=== PATIENT | female | born 1935 ===

== ENCOUNTER 2022-10-29 18:47 | Emergency (ER) | payer MEDICAID ==
[~2022-10-29] VITALS: Ht 142.2 cm; Wt 63.6 kg
[2022-10-29 19:36] LABS: BASOPHILS % (AUTO) 0.7 % (0-1); EOSINOPHILS # (AUTO) 0.4 X10'3 (0-0.9); EOSINOPHILS % (AUTO) 5.5 % (0-6); HEMATOCRIT 37.3 % (35.0-45.0); HEMOGLOBIN 12.6 g/dl (12.0-16.0); LYMPHOCYTES # (AUTO) 0.7 X10'3 (1.1-4.8); LYMPHOCYTES % (AUTO) 9.8 % (21-51); MEAN CORPUSCULAR HEMOGLOBIN 29.2 PG (27.0-31.0); MEAN CORPUSCULAR HGB CONC 33.6 g/dL (33.0-36.5); MEAN CORPUSCULAR VOLUME 86.7 FL (78-98); MEAN PLATELET VOLUME 8.5 FL (7.4-10.4); MONOCYTES # (AUTO) 0.7 X10'3 (0-0.9); MONOCYTES % (AUTO) 10.8 % (2-12); NEUTROPHILS # (AUTO) 4.9 X10'3 (1.8-7.7); NEUTROPHILS % (AUTO) 73.2 % (42-75); PLATELET COUNT 137 X10'3 (140-440); RED BLOOD COUNT 4.31 X10'6 (4.20-5.60); RED CELL DISTRIBUTION WIDTH 15.3 % (11.5-14.5); WHITE BLOOD COUNT 6.7 X10'3 (4.5-11.0)
[2022-10-29 19:49] LABS: ANION GAP 2 (8-16); CHLORIDE 108 MMOL/L (99-107); GLUCOSE 144 MG/DL (70-104); POTASSIUM 3.8 MMOL/L (3.5-5.1); SODIUM 139 MMOL/L (135-145); TOTAL CARBON DIOXIDE 29.3 MMOL/L (24-32)
[2022-10-29 19:50] LABS: ALANINE AMINOTRANSFERASE 147 U/L (12-78); ALBUMIN 3.3 G/DL (3.4-5.0); ALBUMIN/GLOBULIN RATIO 0.8 (1.1-1.5); ALKALINE PHOSPHATASE 446 IU/L (46-116); AMYLASE 35 U/L (25-115); ASPARTATE AMINO TRANSFERASE 216 U/L (10-37); BLOOD UREA NITROGEN 11 MG/DL (7-18); BUN/CREATININE RATIO 12.6 (10.0-20.0); CALCIUM 8.7 MG/DL (8.5-10.1); CREATININE 0.87 MG/DL (0.40-0.90); LIPASE < 50 U/L (73-393); TOTAL PROTEIN 7.3 G/DL (6.4-8.2); eGFR 61 ML/MIN
[2022-10-29 22:25] VITALS: BP 177/84
== END 2022-10-30 00:54 | disposition left against medical advice (07) ==
LOC: ER 18:48
DX: R10.9 Unspecified abdominal pain (principal); Z53.21 Procedure and treatment not carried out due to patient leaving prior to being seen by health care provider
CPT/HCPCS: 36415; 80053; 82150; 83690; 85025; 99281

== ENCOUNTER 2022-12-31 19:14 | Emergency (ER) | payer MEDICAID ==
[~2022-12-31] VITALS: Ht 157.5 cm; Wt 68.2 kg
[2022-12-31 19:27] VITALS: BP 155/60; PULSE 75; RESP 16; TEMP 98; O2SAT 94
== END 2022-12-31 21:26 | disposition left against medical advice (07) ==
LOC: ER 19:15
DX: R07.81 Pleurodynia (principal); Z53.21 Procedure and treatment not carried out due to patient leaving prior to being seen by health care provider
CPT/HCPCS: 99281